=== PATIENT | female | born 1995 | race Two or more races ===

== ENCOUNTER 2025-06-23 10:25 | Emergency (ER) | payer MEDICAID ==
[~2025-06-23] VITALS: Ht 154.9 cm; Wt 70.3 kg
[2025-06-23 12:09] LABS: PLATELET COUNT (AUTO) 295 K/uL (150-450); RED BLOOD CELL COUNT(AUTO) 4.54 MIL/uL (4.0-5.2); RED CELL DISTRIBUTION WIDTH 15.5 % (11.5-15.0); WHITE BLOOD COUNT (AUTO) 8.4 K/uL (4.3-11.0)
[2025-06-23 12:44] LABS: APPEARANCE,URINE SLIGHTLY CLOUDY (CLEAR); BLOOD, URINE NEGATIVE Ery/uL (NEGATIVE); LEUKOCYTE ESTERASE ,URINE NEGATIVE (NEGATIVE); NITRITE, URINE NEGATIVE (NEGATIVE); UGLUCOSE NEGATIVE (NEGATIVE)
[2025-06-23 12:46] LABS: PREGNANCY TEST URINE QUAL NEGATIVE (NEGATIVE)
[2025-06-23 12:48] LABS: ADD URINE CULTURE YES
[2025-06-23 13:00] LABS: AMPHETAMINE, URINE NEGATIVE (NEGATIVE); BARBITURATE, URINE NEGATIVE (NEGATIVE); BENZODIAZEPINE, URINE NEGATIVE (NEGATIVE); CANNABINOID, URINE POSITIVE (NEGATIVE); COCCAINE, URINE NEGATIVE (NEGATIVE); OPIATE, URINE NEGATIVE (NEGATIVE)
[2025-06-23 13:16] LABS: ASPARTATE AMINOTRANSFERASE 22 U/L (15-37); CALCIUM, SERUM 9.0 mg/dL (8.5-10.1); CREATININE 0.7 mg/dL (0.6-1.3); SODIUM SERUM 135 mmol/L (136-145); TOTAL PROTEIN, SERUM 8.2 g/dL (6.4-8.2); UREA NITROGEN, BLOOD 9 mg/dL (7-18)
[2025-06-23 13:17] LABS: ALCOHOL, BLOOD < 3 mg/dL (0-10)
[2025-06-23 13:31] VITALS: BP 131/84; TEMP 98.4; O2SAT 99
== END 2025-06-23 13:32 | disposition home or self-care (01) ==
LOC: ER 10:29
DX: F22 Delusional disorders (principal); F12.90 Cannabis use, unspecified, uncomplicated; Z79.899 Other long term (current) drug therapy
CPT/HCPCS: 36415; 70450-TC; 80048-TC; 80076-TC; 81001; 84703-TC; 85025-TC; 87086-TC; G0480